=== PATIENT | female | born 1985 | race Caucasian/White ===

== ENCOUNTER 2017-05-22 18:42 | Emergency (ER) | payer BC ==
[2017-05-22 20:00] LABS: URINE HCG POC HCG NEGATIVE (Negative)
[2017-05-22 20:17] LABS: ADD MAN DIFF? NO
[2017-05-22] MEDS: IV NORMAL SALINE 1000ML BAG 1,000 ML IV (20:21)
[2017-05-22] MEDS: ONDANSETRON PF 4 MG/2 ML VIAL. IV (20:21)
[2017-05-22 20:25] LABS: BASO % 0 % (0-3); BILIRUBIN,URINE NEGATIVE (NEG); CLARITY,URINE CLOUDY; COLOR,URINE YELLOW; EOS % 1 % (0-3); GLUCOSE,URINE NEGATIVE (NEG); HEMATOCRIT 43.4 % (36.0-47.0); HEMOGLOBIN 14.6 g/dL (12.0-15.5); LYMPH # 0.7 x10^3/uL (1.0-4.8); LYMPH % 11 % (24-48); MEAN CORPUSCULAR HEMOGLOBIN 31 pg (25-35); MEAN CORPUSCULAR HGB CONC 34 g/dL (31-37); MEAN CORPUSCULAR VOLUME 92 fL (79-100); MONO # 0.4 x10^3/uL (0.0-1.1); MONO % 6 % (0-9); NEUT # 5.6 x10^3uL (1.8-7.7); NEUT % 83 % (31-73); NITRITE,URINE NEGATIVE (NEG); PH,URINE 5.5; PLATELET COUNT 190 x10^3/uL (140-400); PROTEIN,URINE NEGATIVE (NEG-TRACE); RED BLOOD COUNT 4.73 x10^6/uL (3.50-5.40); RED CELL DISTRIBUTION WIDTH 13.5 % (11.5-14.5); UROBILINOGEN,URINE 0.2 mg/dL (0.2 mg/dL); WHITE BLOOD COUNT 6.8 x10^3/uL (4.0-11.0)
[2017-05-22 20:35] LABS: ANION GAP 11 (6-14); BLOOD UREA NITROGEN 13 mg/dL (7-20); BUN/CREATININE RATIO 19 (6-20); CALCIUM 8.8 mg/dL (8.5-10.1); CARBON DIOXIDE 27 mmol/L (21-32); CHLORIDE 103 mmol/L (98-107); CREATININE 0.7 mg/dL (0.6-1.0); GLUCOSE 89 mg/dL (70-99); POTASSIUM 3.9 mmol/L (3.5-5.1); SODIUM 141 mmol/L (136-145)
[2017-05-22 20:36] LABS: BACTERIA,URINE FEW /HPF (0-FEW); RBC,URINE 0 /HPF (0-2); SQUAMOUS EPITHELIAL CELL,UR OCC /LPF
[2017-05-22 20:43] LABS: ALBUMIN 4.4 g/dL (3.4-5.0); ALBUMIN/GLOBULIN RATIO 1.2 (1.0-1.7); ALK PHOS 65 U/L (46-116); ALT (SGPT) 28 U/L (14-59); AST (SGOT) 49 U/L (15-37); LIPASE 164 U/L (73-393); TOTAL BILIRUBIN 1.4 mg/dL (0.2-1.0); TOTAL PROTEIN 8.2 g/dL (6.4-8.2)
[2017-05-22] MEDS: FAMOTIDINE 20 MG/2 ML VIAL IVP (21:18)
[2017-05-22] MEDS: METOCLOPRAMIDE HCL 10 MG/2 ML VIAL. IV (21:19)
== END 2017-05-22 23:28 | disposition home or self-care (01) ==
LOC: ER 18:42
DX: B34.9 Viral infection, unspecified (principal); G43.909 Migraine, unspecified, not intractable, without status migrainosus; Z90.49 Acquired absence of other specified parts of digestive tract; Z88.1 Allergy status to other antibiotic agents; Z88.5 Allergy status to narcotic agent; Z88.6 Allergy status to analgesic agent; Z91.011 Allergy to milk products; Z91.048 Other nonmedicinal substance allergy status
CPT/HCPCS: 36415; 76705; 80053; 81001; 81025; 83690; 85025; 96361; 96374; 96375; 99285-25; J2405; J2765; J7030; S0028

== ENCOUNTER 2018-07-16 18:49 | Emergency (ER) | payer BC ==
[~2018-07-16] VITALS: Ht 172.7 cm; Wt 148.3 kg
[~2018-07-16 18:49] MED LIST: DIPH25CA58 PO; EPIPEN 2-P0.3 MG/0.3 IJ; FAMO-63 PO; OXYC1TAB15 PO; PRED50TA PO; PROM25TA10 PO
[2018-07-16 19:10] VITALS: BP 137/83
--- NOTE | 2018-07-16 19:47 | PHYS DOC ---
Past Medical History Past Medical History: No Pertinent History, Migraines, Other Additional Past Medical Histor: Seasonal allergies. Past Surgical History: Cholecystectomy Alcohol Use: Occasionally Drug Use: Marijuana Adult General Chief Complaint Chief Complaint: ANKLE PROBLEM HPI HPI Patient is a 33 year old female who presents with left foot pain and reported swelling x one week. She denies injury. She has used OTC pain medications with little relief. Review of Systems Review of Systems Constitutional: Denies fever or chills [] Respiratory: Denies cough or shortness of breath [] Cardiovascular: No additional information not addressed in HPI [] GI: Denies abdominal pain, nausea, vomiting, bloody stools or diarrhea [] : Denies dysuria or hematuria [] Musculoskeletal: See HPI Integument: Denies rash or skin lesions [] Neurologic: Denies headache, focal weakness or sensory changes [] Endocrine: Denies polyuria or polydipsia [] All other systems were reviewed and found to be within normal limits, except as documented in this note. Allergies Allergies Allergies Coded Allergies Type Severity Reaction Last Updated Verified levofloxacin Allergy Severe Throat swells 02/28/16 Yes hydrocodone Allergy Intermediate PALPITATIONS 06/23/14 Yes tramadol Allergy Intermediate Itching 06/23/14 Yes lactose Allergy Unknown Abd cramps,diarrhea. 02/28/16 Yes ibuprofen Adverse Reaction Intermediate 02/28/16 Yes soap Adverse Reaction Unknown Rash 02/28/16 Yes Physical Exam Physical Exam Constitutional: Well developed, well nourished, no acute distress, non-toxic appearance. [] Cardiovascular:Heart rate regular rhythm, no murmur [] Lungs & Thorax: Bilateral breath sounds clear to auscultation [] Extremities: mid foot tenderness with no ecchymosis, no cyanosis, no clubbing, ROM decreased due to pain with mild edema. [] Neurologic: Alert and oriented X 3, normal motor function, normal sensory functi on, no focal deficits noted. [] Psychologic: Affect normal, judgement normal, mood normal. [] Current Patient Data Vital Signs EKG EKG [] Radiology/Procedures Radiology/Procedures [] [address] [place] [address] IMAGING REPORT Signed PATIENT: CARLOS PROCTOR ACCOUNT: [id number] : 1985 LOCATION: ER AGE: 33 SEX: F EXAM STATUS: DEP ER ORD. PHYSICIAN: SONU RIVERA APRN REASON: pain x 1 week, no injury PROCEDURE: ANKLE LEFT 3V ANKLE LEFT 3V History: Left ankle pain for one week Comparison: None. Findings: 3 views of the left ankle are submitted. No acute fracture or dislocation is identified by radiographs. There is degenerative change of the proximal to mid foot. There are prominent calcaneal enthesophytes. Impression: 1. There is degenerative change of the proximal to mid foot. A prominent calcaneal enthesophytes. Electronically signed by: Shantelle Mccollum MD (07/16/2018 11:05 PM) [facility] DICTATED and SIGNED BY: SHANTELLE MCCOLLUM MD DATE: 07/16/18 5673 Course & Med Decision Making Course & Med Decision Making Pertinent Labs and Imaging studies reviewed. (See chart for details) []The patient was placed in a postop shoe. Dragon Disclaimer Dragon Disclaimer This electronic medical record was generated, in whole or in part, using a voice recognition dictation system. Departure Departure Impression: Primary Impression: Strain of foot Disposition: 01 HOME, SELF-CARE Condition: STABLE Referrals: KIZZY VILLAGOMEZ (PCP) ARIADNE TRAORE DPM Patient Instructions: Foot Sprain Additional Instructions: Review postop shoe for comfort. Follow-up with podiatry for a recheck within 2 days. If worsening return to the emergency department. SONU RIVERA APRN Jul 16, 2018 19:47
--- NOTE | 2018-07-16 23:08 | RAD ---
ANKLE LEFT 3V History: Left ankle pain for one week Comparison: None. Findings: 3 views of the left ankle are submitted. No acute fracture or dislocation is identified by radiographs. There is degenerative change of the proximal to mid foot. There are prominent calcaneal enthesophytes. Impression: 1. There is degenerative change of the proximal to mid foot. A prominent calcaneal enthesophytes. Electronically signed by: Bryson Helton MD (07/16/2018 11:05 PM) [facility]
== END 2018-07-16 20:18 | disposition home or self-care (01) ==
LOC: ER 18:49
DX: S96.812A Strain of other specified muscles and tendons at ankle and foot level, left foot, initial encounter (principal); G43.909 Migraine, unspecified, not intractable, without status migrainosus; Z90.49 Acquired absence of other specified parts of digestive tract; Z88.1 Allergy status to other antibiotic agents; Z88.5 Allergy status to narcotic agent; Z88.6 Allergy status to analgesic agent; Z91.011 Allergy to milk products; Z91.09 Other allergy status, other than to drugs and biological substances; X58.XXXA Exposure to other specified factors, initial encounter; Y93.89 Activity, other specified; Y92.89 Other specified places as the place of occurrence of the external cause; Y99.8 Other external cause status
CPT/HCPCS: 73610; 99283

== ENCOUNTER 2021-05-04 13:25 | Emergency (ER) | payer SELFPAY ==
[~2021-05-04] VITALS: Ht 170.2 cm; Wt 127.0 kg
[2021-05-04 15:23] VITALS: BP 139/86
--- NOTE | 2021-05-04 16:30 | PHYS DOC ---
Past Medical History Past Medical History: No Pertinent History, Migraines, Other Additional Past Medical Histor: Seasonal allergies. Past Surgical History: Cholecystectomy Smoking Status: Never Smoker Alcohol Use: Occasionally Drug Use: Marijuana General Adult EDM: Chief Complaint: FLU SYMPTOM HPI: HPI: Patient is a 35 year old female who presents with cough, loss of taste and smell, bilateral ear pain. Patient states that she tested positive for Covid yesterday. Symptoms started on . Patient states that she has been taking Tylenol, ibuprofen, Flonase to help with symptoms at home. Patient denies shortness of breath. Denies all medical history. Review of Systems: Review of Systems: ROS At least 10 ROS systems have been reviewed and are negative except as documented in the HPI. General: Negative except as outlined in HPI above. Skin: Negative except as outlined in HPI above. HEENT: Negative except as outlined in HPI above. Neck: Negative except as outlined in HPI above. Respiratory: Negative except as outlined in HPI above.. Cardiovascular: Negative except as outlined in HPI above. Abdomen: Negative except as outlined in HPI above. : Negative except as outlined in HPI above. Back/MSK: Negative except as outlined in HPI above. Neuro: Negative except as outlined in HPI above. Psych: Negative except as outlined in HPI above. Heart Score: C/O Chest Pain: No Risk Factors: Risk Factors: DM, Current or recent (<one month) smoker, HTN, HLP, family history of CAD, obesity. Risk Scores: Score 0 - 3: 2.5% MACE over next 6 weeks - Discharge Home Score 4 - 6: 20.3% MACE over next 6 weeks - Admit for Clinical Observation Score 7 - 10: 72.7% MACE over next 6 weeks - Early Invasive Strategies Allergies: Allergies: Allergies Coded Allergies Type Severity Reaction Last Updated Verified levofloxacin Allergy Severe Throat swells 02/28/16 Yes hydrocodone Allergy Intermediate PALPITATIONS 06/23/14 Yes tramadol Allergy Intermediate Itching 06/23/14 Yes lactose Allergy Unknown Abd cramps,diarrhea. 02/28/16 Yes ibuprofen Adverse Reaction Intermediate 02/28/16 Yes soap Adverse Reaction Unknown Rash 02/28/16 Yes Physical Exam: PE: Constitutional: Well developed, well nourished, no acute distress, non-toxic appearance. [] HENT: Normocephalic, atraumatic, bilateral external ears normal, TM red and bulgingright, oropharynx moist, no oral exudates, rhinorrhea Eyes: PERRLA, EOMI, conjunctiva normal, no discharge. [] Neck: Normal range of motion, no tenderness, supple, no stridor. [] Cardiovascular:Heart rate regular rhythm, no murmur [] Lungs & Thorax: Bilateral breath sounds clear to auscultation [] Abdomen: Bowel sounds normal, soft, no tenderness, no masses, no pulsatile masses. [] Skin: Warm, dry, no erythema, no rash. [] Back: No tenderness, no CVA tenderness. [] Extremities: No tenderness, no cyanosis, no clubbing, ROM intact, no edema. [] Neurologic: Alert and oriented X 3, normal motor function, normal sensory function, no focal deficits noted. [] Psychologic: Affect normal, judgement normal, mood normal. [] Current Patient Data: Vital Signs: Vital Signs Date Time Temp Pulse Resp B/P (MAP) Pulse Ox O2 Delivery O2 Flow Rate FiO2 05/04/21 15:23 98.1 71 20 139/86 (103) 96 Room Air 98.1 EKG: EKG: [] Radiology/Procedures: Radiology/Procedures: [] Course & Med Decision Making: Course & Med Decision Making Pertinent Labs and Imaging studies reviewed. (See chart for details) [] 35-year-old female presents with cough, loss of taste and smell and bilateral ear pain. Patient was tested for Covid yesterday and was positive. Patient is afebrile and hemodynamically stable. Patient was reporting bilateral ear pain. Patient's right TM is red and bulging. Patient treated for acute otitis media. Discussed at home [id number] medications with patient. Patient should continue taking ibuprofen and Tylenol for fevers. Mucinex DM to help with cough and congestion. Patient states that she gets a yeast infection whenever she takes an antibiotic and is requesting Diflucan as well. Patient sent home with amoxicillin and Diflucan. Ramez return precautions in length with patient. Patient verbalized understanding of discharge instructions. Patient is hemodynamically stable upon disposition. Advised patient to follow-up with her PCP if symptoms have not improved. Patient to return to the emergency room with worsening symptoms or concerns Herbert Disclaimer: Herbert Disclaimer: This electronic medical record was generated, in whole or in part, using a voice recognition dictation system. Departure Departure Impression: Primary Impression: Acute otitis media Qualified Codes: H66.90 - Otitis media, unspecified, unspecified ear Disposition: 01 HOME / SELF CARE / HOMELESS Condition: STABLE Referrals: KIZZY VILLAGOMEZ (PCP) Patient Instructions: Otitis Media, Adult, [id number] Additional Instructions: You were seen in the emergency room for ear pain. Your right ear was red. Sending you home with an antibiotic for an ear infection. I am also sending you home with Diflucan to prevent a yeast infection. Please return to the emergency room if you have worsening symptoms or concerns. EMERGENCY DEPARTMENT GENERAL DISCHARGE INSTRUCTIONS Thank you for coming to Emergency [facility] ([facility]) [facility] and trusting us with you care. We trust that you had a positive experience in our Emergency Department. If you wish to speak to the department management, you may call the Director at [phone]. YOUR FOLLOW UP INSTRUCTIONS ARE FOLLOWS: 1. Do you have a private Doctor? If you do not have a private doctor, please ask for a resource list of physicians or clinics that may be able to assist you with follow up care. 2. The Emergency Physicain has interpreted your x-rays. The X-Ray specialist will also review them. If there is a change in the findings, you will be notified in 48 hours when at all possible. 3. A lab test or culture has been done, your results will be reviewed and you will be notified if you need a change in treatment. ADDITIONAL INSTRUCTIONS AND INFORMATION: 1. Your care today has been supervised by a physician who is specially trained in emergency care. Many problems require more than one evaluation for a complete diagnosis and treatment. We recommend that you schedule your follow up appointment as recommended to ensure complete treatment of you illness or injury. If you are unable to obtain follow up care and continue to have a problem, or if your condition worsens, we recommend that you return to the ED. 2. We are not able to safely determine your condition over the phone nor are we able to give sound medical advice over the phone. For these safety reasons, if you call for medical advice we will ask you to come to the ED for further evaluation. 3. If you have any questions regarding these discharge instructions please call the ED at [phone]. SAFETY INFORMATION: In the interest of safety, wellness, and injury prevention; we encourage you to wear your sealbelt, if you smoke; quite smoking, and we encourage family to use a protective helmet for bicycling and other sporting events that present an increased risk for head injury. IF YOUR SYMPTOMS WORSEN OR NEW SYMPTOMS DEVELOP, OR YOU HAVE CONCERNS ABOUT YOUR CONDITION; OR IF YOUR CONDITION WORSENS WHILE YOU ARE WAITING FOR YOUR FOLLOW UP APPOINTMENT; EITHER CONTACT YOUR PRIMARY CARE DOCTOR, THE PHYSICIAN WHOSE NAME AND NUMBER YOU WERE GIVEN, OR RETURN TO THE ED IMMEDIATELY. Scripts Fluconazole (DIFLUCAN) 150 Mg Tablet 1 TAB PO ONCE for yeast infection, #1 TAB 0 Refills Prov: KEYA CARTER APRN 05/04/21 Amoxicillin (AMOXICILLIN) 500 Mg Tablet 1 TAB PO BID for 10 Days, #20 TAB 0 Refills Prov: KEYA CARTER APRN 05/04/21 KEYA CARTER APRN May 04, 2021 16:30
[2021-05-04] MEDS ORDERED: FLUC150T PO (16:49)
[2021-05-04] MEDS ORDERED: AMOX500T PO (16:49)
== END 2021-05-04 17:11 | disposition home or self-care (01) ==
LOC: ER 13:25
DX: H66.93 Otitis media, unspecified, bilateral (principal); G43.909 Migraine, unspecified, not intractable, without status migrainosus; Z88.1 Allergy status to other antibiotic agents; Z88.5 Allergy status to narcotic agent; Z88.6 Allergy status to analgesic agent; Z88.8 Allergy status to other drugs, medicaments and biological substances; Z91.011 Allergy to milk products
CPT/HCPCS: 99283